=== PATIENT | female | born 1965 | race Caucasian/White ===

== ENCOUNTER 2017-12-20 01:46 | Emergency (ER) | payer OTHER ==
[~2017-12-20] VITALS: Ht 167.6 cm; Wt 70.3 kg
[2017-12-20] MEDS ORDERED: DOXYCYCLINE 10100 MG PO (03:25)
[2017-12-20 03:32] VITALS: BP 122/74
[2017-12-21] MEDS ORDERED: PHENERGAN 25 MG25 M1 PO (09:46)
[2017-12-21] MEDS ORDERED: ZOFRAN ODT4 MG PO (09:46)
== END 2017-12-20 03:32 | disposition home or self-care (01) ==
LOC: ER 01:46
DX: S61.250A Open bite of right index finger without damage to nail, initial encounter (principal); Z88.0 Allergy status to penicillin; Z91.040 Latex allergy status; W55.01XA Bitten by cat, initial encounter; Y93.89 Activity, other specified; Y92.89 Other specified places as the place of occurrence of the external cause; Y99.8 Other external cause status

== ENCOUNTER 2017-12-21 08:57 | Emergency (ER) | payer OTHER ==
[~2017-12-21] VITALS: Ht 167.6 cm; Wt 63.5 kg
[~2017-12-21 08:57] MED LIST: DOXYCYCLINE 10100 MG PO
[2017-12-21 09:16] LABS: ABSOLUTE NEUTROPHILS 10.6 thou/uL (1.4-8.2); BASOPHILS 0.3 % (0.0-2.0); EOSINOPHILS 0.9 % (0.0-3.0); HEMATOCRIT 49.4 % (37.0-47.0); HEMOGLOBIN 16.6 gm/dL (12.0-15.0); LYMPHOCYTES 4.4 % (24.0-44.0); MCH 29.4 pg (26.0-34.0); MCHC 33.6 g/dL (28.0-37.0); MCV 87.5 fL (80.0-100.0); MONOCYTES 3.5 % (1.0-8.0); PLATELET COUNT 245 thou/uL (150-400); POLYS 90.9 % (36.0-66.0); RBC 5.64 mil/uL (4.20-5.00); RDW 13.4 % (10.5-14.5); WBC 11.6 thou/uL (4.0-11.0)
[2017-12-21 09:24] LABS: CALCIUM 9.5 mg/dL (8.5-10.1); POTASSIUM 4.3 mmol/L (3.5-5.1)
[2017-12-21 09:31] LABS: ALBUMIN 4.4 g/dL (3.4-5.0); DIRECT BILIRUBIN 0.1 mg/dL (<0.1-0.3); TOTAL BILIRUBIN 0.6 mg/dL (<0.1-1.0); TOTAL PROTEIN 8.2 g/dL (6.4-8.2)
[2017-12-21] MEDS ORDERED: ZOFRAN ODT4 MG PO (09:46)
[2017-12-21] MEDS ORDERED: PHENERGAN 25 MG25 M1 PO (09:46)
[2017-12-21 10:30] VITALS: BP 115/72
== END 2017-12-21 10:30 | disposition home or self-care (01) ==
LOC: ER 08:57
PROVIDERS: Emergency Medicine
DX: R11.2 Nausea with vomiting, unspecified (principal); L08.9 Local infection of the skin and subcutaneous tissue, unspecified; W64.XXXD Exposure to other animate mechanical forces, subsequent encounter; Z88.0 Allergy status to penicillin; Z91.040 Latex allergy status; Z85.3 Personal history of malignant neoplasm of breast

== ENCOUNTER 2017-12-23 09:18 | Inpatient (IN) | payer OTHER ==
[~2017-12-23] VITALS: Ht 152.4 cm; Wt 72.6 kg
--- NOTE | ~2017-12-23 | HC ---
[facility] [place] [address] CONSULTATION Name: NELLY ARZOLA Room #: 443-P ADM IN M.R.#: [id number] Admission: 12/23/17 Attend Phys: Reji Baum DO Discharge: Date of : 67 Report #: [id number] THIS REPORT FOR: //name// CC: [facility] physician/PCP Collin Baum DATE OF SERVICE: 12/23/2017 CONSULTATION: Infectious diseases. HISTORY OF PRESENT ILLNESS: Nelly Arzola is a 52-year-old white female who was bitten by her pet cat on December 19. This was a provoked attack. Her 2 cats were fighting and she tried to separate them so the one cat bit the patient on her right index finger. The patient went to the Emergency Room. She gave a history of PENICILLIN ALLERGY, so was treated with doxycycline. This caused nausea, vomiting and diarrhea, so the patient returned to the ER and was given Phenergan and Zofran. In spite of this, she developed a blister at the site of the wound and returned to the ER on 12/23/2017. She was admitted to the hospital as failure to respond to oral antibiotic therapy. Infectious Disease consultation was requested. PAST MEDICAL HISTORY: Significant for breast cancer in 2011. This was treated with a lumpectomy with radiation therapy and 5 years of tamoxifen. There has been no evidence of reoccurrence. The patient says the lumpectomy was just a lump of few centimeters and did not involve significant anatomic changed to the breast. No lymph node dissection was done. PAST SURGICAL HISTORY: Includes hysterectomy. The patient has no medical illnesses. ALLERGIES: As follows. The patient says as a child she was given PENICILLIN and developed hives. She has no memory of this. This is according to her mother. She has not taken any penicillin since then. She does not believed she has had any ampicillin, amoxicillin or Augmentin. FAMILY HISTORY: Noncontributory. SOCIAL HISTORY: The patient is and lives with her . 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 She did not use tobacco, significant alcohol nor drugs. The cat had his shots including rabies up to date. The patient had a tetanus shot with her first visit to the ER on 12/20/2017. [address] [address] CONSULTATION Name: NELLY ARZOLA Room #: 3[facility] IN M.R.#: [id number] Admission: 12/23/17 Attend Phys: Reji Baum DO Discharge: Date of : 67 Report #: [id number] REVIEW OF SYSTEMS: Negative for fevers, chills, sweats. Negative for head, neck, chest symptoms. GI symptoms have resolved. No symptoms. Extremities limited to the right index finger, which is painful and stiff. PHYSICAL EXAMINATION: GENERAL: The patient appears her stated age, alert, oriented, comfortable, not in any distress. VITAL SIGNS: Normal. The patient has been afebrile, blood pressure 108/65. HEAD, NECK, CHEST, AND ABDOMEN: Unremarkable. EXTREMITIES: Unremarkable except for the right index finger. On the lateral aspect of the second metatarsal, there is a puncture wound. Apparently, this was probed and drained in the ER. There is some diffuse puffiness on the middle phalanx. There is lymphangitic streak along the proximal phalanx toward the webspace and some puffiness over the metacarpal head. There is some limitation of flexion in the finger due to the swelling more than the pain. There is no adenopathy in the epitrochlear nor axillary beds. Range of motion beyond the finger is normal. The other 3 fingers flex very well. LABORATORY DATA: CBC showed white count was initially 11.6 on Sunday and is now down to 3.9. CBC and CMP are otherwise unremarkable. IMPRESSION: Cat bite with cellulitis. The patient with PENICILLIN ALLERGY, Rocephin would be a reasonable treatment. This has good coverage for staphylococcus and streptococcus and Pasteurella multocida. We may have results of cultures from the drainage procedure done in the ER. Until then we will continue Rocephin, stop the Flagyl. Heat pad and Xeroform gauze may be helpful to act both as a topical antiseptic and to facilitate any further drainage from the finger. I anticipate the patient will probably able to go home tomorrow after a second dose of Rocephin and could use Cipro by mouth for antibiotic. I will be happy to see her in the office in followup to review the cultures and make sure that she responds appropriately to the therapy. <ELECTRONICALLY SIGNED> By: Clifford Martinez MD 12/23/172300 [id number] Clifford Martinez MD /nt
[2017-12-23 09:18] VITALS: BP 117/89
[~2017-12-23 09:18] MED LIST changes: +PHENERGAN 25 MG25 M1 PO; +ZOFRAN ODT4 MG PO
[2017-12-23 09:49] LABS: HEMATOCRIT 42.8 % (37.0-47.0); MCH 29.5 pg (26.0-34.0); MCHC 33.8 g/dL (28.0-37.0); MCV 87.3 fL (80.0-100.0); PLATELET COUNT 194 thou/uL (150-400); RDW 13.6 % (10.5-14.5); WBC 3.9 thou/uL (4.0-11.0)
[2017-12-23 09:52] LABS: CALCIUM 9.1 mg/dL (8.5-10.1); POTASSIUM 3.7 mmol/L (3.5-5.1)
[2017-12-23 09:56] LABS: HEMOGLOBIN 14.5 gm/dL (12.0-15.0)
[2017-12-23 10:14] LABS: ABSOLUTE NEUTROPHILS 2.4 thou/uL (1.4-8.2); ATYPICAL LYMPHS 3 %; PLATELET ESTIMATE NORMAL
[2017-12-23 11:09] VITALS: BP 136/77
[2017-12-23 12:11] VITALS: BP 109/72
[2017-12-23 16:26] VITALS: BP 147/84
[2017-12-23 16:30] VITALS: BP 108/65
[2017-12-23 21:35] VITALS: BP 107/69
[2017-12-24 04:55] VITALS: BP 98/49
[2017-12-24 05:13] LABS: ABSOLUTE NEUTROPHILS 2.1 thou/uL (1.4-8.2); BASOPHILS 0.4 % (0.0-2.0); EOSINOPHILS 4.5 % (0.0-3.0); HEMATOCRIT 40.6 % (37.0-47.0); HEMOGLOBIN 13.7 gm/dL (12.0-15.0); LYMPHOCYTES 34.3 % (24.0-44.0); MCH 29.3 pg (26.0-34.0); MCHC 33.7 g/dL (28.0-37.0); MCV 87.1 fL (80.0-100.0); MONOCYTES 10.4 % (1.0-8.0); PLATELET COUNT 214 thou/uL (150-400); POLYS 50.4 % (36.0-66.0); RBC 4.66 mil/uL (4.20-5.00); WBC 4.1 thou/uL (4.0-11.0)
[2017-12-24 08:00] VITALS: BP 103/66
[2017-12-24] MEDS ORDERED: CIPRO500 MG PO (08:29)
[2017-12-24 16:00] VITALS: BP 112/80
[2017-12-24 20:15] VITALS: BP 111/69
[2017-12-25 04:52] VITALS: BP 90/50
[2017-12-25 07:46] VITALS: BP 104/70
[2017-12-25 16:11] LABS: BASOPHILS 0.4 % (0.0-2.0); EOSINOPHILS 2.9 % (0.0-3.0); HEMATOCRIT 45.6 % (37.0-47.0); HEMOGLOBIN 15.3 gm/dL (12.0-15.0); LYMPHOCYTES 26.1 % (24.0-44.0); MCH 29.1 pg (26.0-34.0); MCHC 33.6 g/dL (28.0-37.0); MCV 86.6 fL (80.0-100.0); MONOCYTES 7.9 % (1.0-8.0); PLATELET COUNT 242 thou/uL (150-400); POLYS 62.7 % (36.0-66.0); RBC 5.26 mil/uL (4.20-5.00); RDW 13.1 % (10.5-14.5); WBC 4.9 thou/uL (4.0-11.0)
[2017-12-25] MEDS ORDERED: ROCEPHIN 11 GM/1001 IV ×2 (16:24→16:51)
[2017-12-25 16:29] VITALS: BP 104/70
[2017-12-25 16:55] VITALS: BP 104/70
[2017-12-25 17:51] VITALS: BP 119/76
== END 2017-12-25 18:55 | disposition home health service (06) | DRG 602 ==
LOC: ER 09:18 → TBA 11:02 → 4S 11:02
PROVIDERS: Family Medicine; Internal Medicine Infectious Disease; Physician Assistant
PROC: 0H9FXZZ Drainage of Right Hand Skin, External Approach (ICD-10-PCS; 2017-12-23)
PROC: 05HB33Z Insertion of Infusion Device into Right Basilic Vein, Percutaneous Approach (ICD-10-PCS; principal; 2017-12-25)
DX: L03.011 Cellulitis of right finger (principal); E43 Unspecified severe protein-calorie malnutrition; L02.511 Cutaneous abscess of right hand; S61.250A Open bite of right index finger without damage to nail, initial encounter; Z85.3 Personal history of malignant neoplasm of breast; Z88.0 Allergy status to penicillin; Z91.040 Latex allergy status; W55.01XA Bitten by cat, initial encounter; Y93.89 Activity, other specified; Y92.89 Other specified places as the place of occurrence of the external cause; Y99.8 Other external cause status; Z89.021 Acquired absence of right finger(s); Z23 Encounter for immunization; Z68.31 Body mass index [BMI] 31.0-31.9, adult
CPT/HCPCS: 10102; 27000

== ENCOUNTER → 2018-01-02 | Outpatient (CLI) | payer OTHER ==
[~2018-01-02] MED LIST changes: +CIPRO500 MG PO; +ROCEPHIN 11 GM/1001 IV
[2018-01-02 11:30] VITALS: BP 122/84
== END ==
LOC: SEN 09:38
DX: M86.8X8 Other osteomyelitis, other site (principal)

== ENCOUNTER → 2018-01-10 | Outpatient (CLI) | payer OTHER | LOC: SEN 10:56 | DX: M86.8X8 Other osteomyelitis, other site (principal) ==

== ENCOUNTER → 2018-01-29 | Outpatient (CLI) | payer OTHER | LOC: SEN 08:42 → RAD 08:42 → SEN 13:45 | DX: M79.644 Pain in right finger(s) (principal) ==